=== PATIENT | female | born 1985 | race Caucasian/White ===

== ENCOUNTER 2018-02-14 14:38 | Emergency (ER) | payer OTHER, SELFPAY ==
[2018-02-14 14:42] VITALS: BP 131/65; PULSE 87; RESP 16; TEMP 36.1; O2SAT 97
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
[2018-02-14] MEDS: IBUPROFEN 400 MG TABLET 800 MG PO (17:17)
[2018-02-14 18:13] VITALS: BP 122/70; PULSE 70; RESP 12; O2SAT 99
== END 2018-02-14 18:15 | disposition home or self-care (01) ==
PROVIDERS: Emergency Provider Internal Medicine; PCP Physician Assistant Medical
DX: S16.1XXA Strain of muscle, fascia and tendon at neck level, initial encounter (principal); S46.911A Strain of unspecified muscle, fascia and tendon at shoulder and upper arm level, right arm, initial encounter; V43.52XA Car driver injured in collision with other type car in traffic accident, initial encounter
CPT/HCPCS: 72125; 72128; 73030; 81025; 99282; 99284

== ENCOUNTER → 2018-07-22 17:04 | Outpatient (CLI) | payer OTHER, SELFPAY ==
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
== END ==
PROVIDERS: PCP Physician Assistant Medical; Visit Provider Family Medicine
DX: S16.1XXA Strain of muscle, fascia and tendon at neck level, initial encounter (principal); M54.12 Radiculopathy, cervical region; J32.0 Chronic maxillary sinusitis
CPT/HCPCS: 70551; 72141

== ENCOUNTER → 2019-07-04 09:46 | Outpatient (CLI) | payer OTHER, SELFPAY ==
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
== END ==
PROVIDERS: PCP Physician Assistant Medical; Visit Provider Family Medicine
DX: R22.2 Localized swelling, mass and lump, trunk (principal)
CPT/HCPCS: 76882

== ENCOUNTER → 2019-07-11 07:38 | Outpatient (CLI) | payer OTHER, SELFPAY ==
--- NOTE | 2019-07-11 | DI.MRI.S_ITS ---
PROCEDURE: MR THORACIC SPINE WO/W CON INDICATIONS: Localized swelling, mass and lump, unspecified TECHNIQUE: Noncontrast sagittal T1 spin echo and T2 fast spin echo, sagittal STIR, axial T1 and T2 fast spin echo through the thoracic spine. After the administration of contrast, axial and sagittal T1 spin echo with fat saturation through the thoracic spine. COMPARISON: [facility], CT, CT THORACIC SPINE WO CON, 02/14/2018, 16:31. [facility], MR, MR CERVICAL SPINE WO CON, 07/22/2018, 17:44. FINDINGS: Image quality: Excellent. Alignment and curvature: There is normal bony alignment. Marrow: Marrow is of normal overall signal. No acute vertebral body compression fractures. Spinal cord: Visualized spinal cord is of normal signal and size, without abnormal enhancement. Paraspinous soft tissues: Markers are placed along the area of clinical abnormality involving the left flank. At this site, there is poorly defined increased T2-weighted signal seen, as on series 10 images 11 and 12. Mild generalized enhancement can be seen within this region, as on series 4 image 13. No abhi masses or lipomas can be seen. Miscellaneous: The visualized central canal and foramina appear widely patent at all scanned levels. Incidental note is made of an accessory spleen along the hilum of the primary spleen. IMPRESSION: Increased T2 signal and mildly increased enhancement seen at the area of clinical concern. This may be related to cellulitis. Please correlate with a potential injury at this site as well. No masses are seen. Dictated by: Declan Sterling M.D. on 07/11/2019 at 9:52 Approved by: Declan Sterling M.D. on 07/11/2019 at 9:57
== END ==
PROVIDERS: PCP Physician Assistant Medical; Visit Provider Family Medicine
DX: R22.2 Localized swelling, mass and lump, trunk (principal); Q89.09 Congenital malformations of spleen
CPT/HCPCS: 72157

== ENCOUNTER → 2020-07-30 10:42 | Outpatient (ROUT) | payer OTHER, SELFPAY ==
[2020-07-30 11:11] LABS: COVID19 -Nasal RAPID Negative (Negative)
== END ==
PROVIDERS: Visit Provider Family Medicine
DX: Z20.822 Contact with and (suspected) exposure to COVID-19 (principal)
CPT/HCPCS: 87635

== ENCOUNTER → 2020-10-02 11:41 | Outpatient (ROUT) | payer OTHER, SELFPAY ==
[2020-10-02 12:07] LABS: COVID19 -Nasal RAPID Negative (Negative)
== END ==
PROVIDERS: Visit Provider Family Medicine
DX: Z20.822 Contact with and (suspected) exposure to COVID-19 (principal)
CPT/HCPCS: 87635

== ENCOUNTER → 2021-03-24 11:44 | Outpatient (ROUT) | payer OTHER, SELFPAY ==
[2021-03-24 13:51] LABS: COVID19 -Nasal RAPID Negative (Negative)
== END ==
PROVIDERS: Visit Provider Family Medicine
DX: Z20.822 Contact with and (suspected) exposure to COVID-19 (principal)
CPT/HCPCS: 87635

== ENCOUNTER → 2022-09-07 13:17 | Outpatient (CLI) | payer OTHER, SELFPAY ==
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
== END ==
PROVIDERS: Referring Provider Family Medicine; Visit Provider Family Medicine
DX: N92.0 Excessive and frequent menstruation with regular cycle (principal)
CPT/HCPCS: 76830; 76856

== ENCOUNTER → 2023-05-03 13:46 | Outpatient (ROUT) | payer OTHER, SELFPAY ==
[2023-05-03 14:16] LABS: Alanine Aminotransferase 21 IU/L (<35); Albumin 4.4 g/dL (3.5-5.0); Albumin Globulin Ratio 1.5 (1.0-2.8); Alkaline Phosphatase 87 U/L (38-126); Aspartate Aminotransferase 30 IU/L (14-36); BUN Creatinine Ratio 19.4 (6-22); Bilirubin Total 0.3 mg/dL (0.2-1.3); Blood Urea Nitrogen 12 mg/dL (7-17); C-Reactive Protein Quant 1.2 mg/dL (<1.0); Calcium 9.8 mg/dL (8.4-10.2); Carbon Dioxide 24 mmol/L (22-32); Chloride 104 mmol/L (98-107); Estimated Glomerular Filt Rate > 60 mL/min (>60); Globulin 2.9 g/dL (1.7-4.1); Glucose 77 mg/dL (70-100); HEMOLYSIS 23 (0-50); HEMOLYSIS < 15 (0-50); Iron 73 ug/dL (37-170); Potassium 4.7 mmol/L (3.4-5.1); Sodium 138 mmol/L (137-145); Total Protein 7.3 g/dL (6.3-8.2)
[2023-05-03 14:23] LABS: Add Manual Diff / Slide Review NO; Basophils Absolute Auto 100 /uL (0-100); Basophils Percent Auto 0.7 % (0-2); Eosinophils Absolute Auto 100 /uL (0-450); Eosinophils Percent Auto 1.7 % (2-4); Hematocrit 41.6 % (36-46); Hemoglobin 13.7 g/dL (12.0-16.0); Lymphocytes Absolute Auto 1600 /uL (1100-4500); Lymphocytes Percent Auto 19.5 % (25-40); Mean Corpuscular HGB Conc 32.9 % (30-36); Mean Corpuscular Hemoglobin 29.9 PG (26-34); Mean Corpuscular Volume 90.8 fL (80-100); Monocytes Absolute Auto 400 /uL (0-900); Monocytes Percent Auto 5.2 % (3-14); Neutrophils Absolute Auto 5800 /uL (1500-7000); Neutrophils Percent Auto 72.9 % (50-75); Platelet Count 306 X10^3/uL (150-400); Red Blood Cell Count 4.58 X10^6/uL (4.0-5.2); Red Cell Distribution Width 14.8 % (11.6-14.8)
[2023-05-03 14:27] LABS: Percent Iron Saturation 19 % (15-50); Total Iron Binding Capacity 379 ug/dL (265-497); Transferrin 319 mg/dL (206-381)
[2023-05-03 14:37] LABS: Vitamin D 25 Hydroxy (D3) 30.9 ng/mL (30.0-100.0)
[2023-05-03 14:38] LABS: Progesterone, Total 0.42 ng/mL
[2023-05-03 14:48] LABS: Thyroid Stimulating Hormone 0.465 uIU/mL (0.47-4.68)
[2023-05-03 15:19] LABS: Folate 9.2 ng/mL (2.76-20.0); Vitamin B12 709 pg/mL (239-931)
[2023-05-06 22:29] LABS: Estrogen 156 pg/mL (.)
== END ==
PROVIDERS: PCP Family Medicine; Visit Provider Family Medicine
DX: E03.9 Hypothyroidism, unspecified (principal); N93.9 Abnormal uterine and vaginal bleeding, unspecified; L65.9 Nonscarring hair loss, unspecified; E55.9 Vitamin D deficiency, unspecified
CPT/HCPCS: 80053; 82306; 82607; 82672; 82746; 83540; 83550; 84144; 84443; 85025; 86140

== ENCOUNTER → 2024-08-14 12:38 | Outpatient (ROUT) | payer OTHER, SELFPAY ==
[2024-08-14 13:02] LABS: Add Manual Diff / Slide Review NO; Basophils Absolute Auto 100 /uL (0-100); Basophils Percent Auto 0.7 % (0-2); Eosinophils Absolute Auto 300 /uL (0-450); Eosinophils Percent Auto 3.2 % (2-4); Hematocrit 37.2 % (36-46); Lymphocytes Absolute Auto 1900 /uL (1100-4500); Lymphocytes Percent Auto 24.6 % (25-40); Mean Corpuscular HGB Conc 32.1 % (30-36); Mean Corpuscular Hemoglobin 27.2 PG (26-34); Mean Corpuscular Volume 84.7 fL (80-100); Monocytes Absolute Auto 500 /uL (0-900); Monocytes Percent Auto 6.8 % (3-14); Neutrophils Absolute Auto 5100 /uL (1500-7000); Neutrophils Percent Auto 64.7 % (50-75); Platelet Count 283 X10^3/uL (150-400); Red Cell Distribution Width 14.7 % (11.6-14.8); White Blood Cell Count 7.9 X10^3/uL (4.5-11.0)
[2024-08-14 13:12] LABS: Cholesterol 197 mg/dL (140-199); HDL Cholesterol 65 mg/dL (40-60); LDL Cholesterol Calculated 92 mg/dL (<100); Triglycerides 201 mg/dL (35-150); Uric Acid 4.1 mg/dL (2.5-6.2)
[2024-08-14 13:27] LABS: Free T3, Triiodothyronine Free 3.97 pg/mL (2.77-5.27)
[2024-08-14 13:29] LABS: Free T4, Direct Thyroxine 0.91 ng/dL (0.78-2.19)
[2024-08-14 13:38] LABS: Hemoglobin A1C% w Est Avg Glu 4.9 % (4.0-6.0)
[2024-08-14 14:28] LABS: Progesterone, Total 0.67 ng/mL; Vitamin D 25 Hydroxy (D3) 26.5 ng/mL (30.0-100.0)
[2024-08-15 04:10] LABS: CRP, High Sensitivity 10.71 mg/L (0.00-3.00)
[2024-08-15 10:13] LABS: Alanine Aminotransferase 26 IU/L (<35); Albumin 4.3 g/dL (3.5-5.0); Albumin Globulin Ratio 1.7 (1.0-2.8); Alkaline Phosphatase 85 U/L (38-126); Aspartate Aminotransferase 32 IU/L (14-36); BUN Creatinine Ratio 21.1 (6-22); Bilirubin Total 0.3 mg/dL (0.2-1.3); Blood Urea Nitrogen 15 mg/dL (7-17); Calcium 9.1 mg/dL (8.4-10.2); Carbon Dioxide 15 mmol/L (22-32); Chloride 108 mmol/L (98-107); Estimated Glomerular Filt Rate > 60 mL/min (>60); Globulin 2.5 g/dL (1.7-4.1); Glucose 59 mg/dL (70-100); Sodium 139 mmol/L (137-145); Total Protein 6.8 g/dL (6.3-8.2)
[2024-08-15 10:27] LABS: HEMOLYSIS < 15 (0-50)
[2024-08-15 10:43] LABS: Thyroid Stimulating Hormone 3.64 uIU/mL (0.47-4.68)
[2024-08-15 13:08] LABS: Potassium 4.1 mmol/L (3.4-5.1)
[2024-08-17 10:08] LABS: Estrone,Serum 100 pg/mL (27-231)
== END ==
PROVIDERS: PCP Family Medicine; Visit Provider Family Medicine
DX: Z00.00 Encounter for general adult medical examination without abnormal findings (principal); E03.9 Hypothyroidism, unspecified; N93.8 Other specified abnormal uterine and vaginal bleeding; E55.9 Vitamin D deficiency, unspecified
CPT/HCPCS: 80053; 80061; 82306; 82679; 83036; 84144; 84439; 84443; 84481; 84550; 85025; 86140

== ENCOUNTER → 2024-08-16 15:04 | Outpatient (ROUT) | payer OTHER, SELFPAY ==
[2024-08-16 15:43] LABS: BUN Creatinine Ratio 20.8 (6-22); Blood Urea Nitrogen 20 mg/dL (7-17); Calcium 9.3 mg/dL (8.4-10.2); Carbon Dioxide 24 mmol/L (22-32); Chloride 103 mmol/L (98-107); Estimated Glomerular Filt Rate > 60 mL/min (>60); Glucose 80 mg/dL (70-100); HEMOLYSIS < 15 (0-50); Potassium 4.3 mmol/L (3.4-5.1); Sodium 138 mmol/L (137-145)
[2024-08-16 18:53] LABS: Erythrocyte Sedimentation Rate 6 MM/HR (0-20)
[2024-08-19 13:36] LABS: Anti Thyroglobulin Antibody <1.0 IU/mL (0.0-0.9); Thyroid Peroxidase Antibodies 13 IU/mL (0-34)
== END ==
PROVIDERS: PCP Family Medicine; Visit Provider Family Medicine
DX: R79.82 Elevated C-reactive protein (CRP) (principal); E03.9 Hypothyroidism, unspecified; R79.9 Abnormal finding of blood chemistry, unspecified
CPT/HCPCS: 80048; 82533; 83529; 85651; 86038; 86376; 86800

== ENCOUNTER → 2024-09-20 17:25 | Outpatient (ROUT) | payer OTHER, SELFPAY ==
[2024-09-20 18:01] LABS: Free T3, Triiodothyronine Free 4.15 pg/mL (2.77-5.27); Free T4, Direct Thyroxine 1.51 ng/dL (0.78-2.19)
[2024-09-20 18:14] LABS: Thyroid Stimulating Hormone 0.129 uIU/mL (0.47-4.68)
[2024-09-25 05:36] LABS: CRP, High Sensitivity 5.98 mg/L (0.00-3.00)
== END ==
PROVIDERS: PCP Family Medicine; Visit Provider Family Medicine
DX: E03.9 Hypothyroidism, unspecified (principal); R79.82 Elevated C-reactive protein (CRP); R79.9 Abnormal finding of blood chemistry, unspecified
CPT/HCPCS: 84439; 84443; 84481; 86140

== ENCOUNTER → 2025-04-10 15:29 | Outpatient (ROUT) | payer OTHER, SELFPAY ==
[2025-04-10 16:39] LABS: Free T3, Triiodothyronine Free 4.22 pg/mL (2.77-5.27); Free T4, Direct Thyroxine 1.30 ng/dL (0.78-2.19)
[2025-04-10 16:52] LABS: Thyroid Stimulating Hormone 1.05 uIU/mL (0.47-4.68)
== END ==
PROVIDERS: Visit Provider Family Medicine
DX: E03.9 Hypothyroidism, unspecified (principal); R79.82 Elevated C-reactive protein (CRP)
CPT/HCPCS: 84439; 84443; 84481; 86140